=== PATIENT | female | born 1995 | race Caucasian/White ===

== ENCOUNTER 2018-02-25 19:50 | Observation (INO) ==
[2018-02-25 20:09] VITALS: BP 139/94
[2018-02-25 20:48] LABS: Basophils % 0.2 %; Eosinophils # 0.1 K/mcL (0.0-0.6); Eosinophils % 1.2 %; Hematocrit 32.9 % (35.3-44.9); Immature Granulocytes % 0.7 % (0-4); Lymphocytes # 2.1 K/mcL (0.6-4.6); Mean Corpuscular HGB Conc 33.4 g/dL (31.6-35.5); Mean Corpuscular Hemoglobin 28.5 pg (28.0-33.3); Mean Corpuscular Volume 85.2 fL (83.0-100.0); Mean Platelet Volume 10.4 fL (9.4-12.4); Monocytes # 0.5 K/mcL (0.0-1.3); Monocytes % 5.7 %; Neutrophils # 6.7 K/mcL (1.6-8.9); Platelet Count 246 K/mcL (140-400); Red Blood Count 3.86 M/mcL (3.82-4.97); Red Cell Distribution Width 12.3 % (11.5-14.5); Segmented Neutrophils % 70.2 %
[2018-02-25 21:09] LABS: Alanine Aminotransferase 7 Units/L (7-52); Aspartate Amino Transferase 10 Units/L (13-39); BUN/Creatinine Ratio 8 (6-26); Blood Urea Nitrogen 4 mg/dL (6-20); Lactate Dehydrogenase 118 Units/L (140-271); Uric Acid 4.1 mg/dL (2.3-7.6); eGFR For African Americans > 60 (> 60); eGFR For Non-African Americans > 60 (> 60)
[2018-02-25 21:25] LABS: Bilirubin,Urine Negative (Negative); Blood,Urine Negative (Negative); Clarity,Urine Clear (Clear); Color,Urine Yellow (Yellow); Glucose,Urine (UA) Normal (Normal); Ketones,Urine Negative (Negative); Leukocyte Esterase,Urine Trace (Negative); Nitrite,Urine Negative (Negative); PH,Urine 6.5 pH Units (5.0-8.0); Protein,Urine Negative (Neg-Trace); Specific Gravity,Urine 1.008 (1.010-1.025); Urobilinogen,Urine Normal (Normal)
[2018-02-25 21:34] LABS: Amphetamine Screen,Urine Negative ng/mL (Cutoff=1000); Barbiturate Screen,Urine Negative ng/mL (Cutoff=200); Benzodiazepines Screen,Urine Negative ng/mL (Cutoff=200); Cannabinoid Screen,Urine Positive ng/mL (Cutoff = 50); Cocaine Screen,Urine Negative ng/mL (Cutoff= 300); Opiate Screen,Urine Negative ng/mL (Cutoff=300); Phencyclidine Screen,Urine Negative ng/mL (Cutoff=25)
[2018-02-25 21:45] LABS: Creatinine,Urine 27 mg/dL
[2018-02-25 21:46] LABS: Renal Epithelial Cells,Urine Few per hpf (None-Few); Squamous Epithelial Cell,Urine Few per lpf (None-Few)
[2018-02-25 21:47] LABS: Bacteria,Urine Moderate per hpf (None-Few); RBC,Urine 0-3 per hpf (0-3); WBC,Urine 0-3 per hpf (0-3)
--- NOTE | 2018-02-25 21:53 | Discharge Summary ---
Date of Encounter: 02/25/18 Time of Encounter: 21:51 - Discharge Diagnosis (1) 35 weeks gestation of Priority: Primary Status: Acute Comments: admitted for PIH evaluation Normal PIH labs and BPs No proteinuria (2) NST (non-stress test) reactive on surveillance Priority: Secondary Status: Acute Comments: baseline 135 bpm moderate variability +15x15 accels no decels noted. No contractions. Cat 1 tracing - Discharge Medications Home Medications: Multivitamin [Flintstones] 1 tab PO DAILY 02/25/18 [History] Omeprazole [PriLOSEC] 1 tab PO DAILY 02/25/18 [History] Allergies/Adverse Reactions: 3 Allergy/AdvReac Type Severity Reaction Status Date / Time No Known Allergies Allergy Verified 02/25/18 20:03 Data Procedures and tests throughout hospitalization: Laboratory Tests 02/25/18 02/25/18 02/25/18 20:22 20:22 21:09 WBC 9.5 RBC 3.86 Hgb 11.0 L Hct 32.9 L MCV 85.2 MCH 28.5 MCHC 33.4 RDW 12.3 Plt Count 246 MPV 10.4 Immature Gran % 0.7 Seg Neutrophils % 70.2 Lymphocytes % 22.0 Monocytes % 5.7 Eosinophils % 1.2 Basophils % 0.2 Neutrophils # 6.7 Lymphocytes # 2.1 Monocytes # 0.5 Eosinophils # 0.1 Basophils # 0.0 BUN 4 L Creatinine 0.49 L Est GFR ( Amer) > 60 Est GFR (Non-Af Amer) > 60 BUN/Creatinine Ratio 8 Uric Acid 4.1 AST 10 L ALT 7 Lactate Dehydrogenase 118 L Urine Color Yellow Urine Clarity Clear Urine pH 6.5 Ur Specific [place] 1.008 L Urine Protein Negative Urine Glucose (UA) Normal Urine Ketones Negative Urine Blood Negative Urine Nitrite Negative Urine Bilirubin Negative Urine Urobilinogen Normal Ur Leukocyte Esterase Trace H Urine Microscopic RBC 0-3 Urine Microscopic WBC 0-3 Ur Squamous Epith Cells Few Ur Renal Epithelial Cell Few Urine Bacteria Moderate H Ur Culture Indicated? YES A Urine Creatinine Protein/Creatinin Ratio Urine Total Protein Urine Opiates Screen Ur Barbiturates Screen Ur Phencyclidine Scrn Ur Amphetamines Screen U Benzodiazepines Scrn Urine Cocaine Screen U Marijuana (THC) Screen 02/25/18 02/25/18 21:09 21:09 WBC RBC Hgb Hct MCV MCH MCHC RDW Plt Count MPV Immature Gran % Seg Neutrophils % Lymphocytes % Monocytes % Eosinophils % Basophils % Neutrophils # Lymphocytes # Monocytes # Eosinophils # Basophils # BUN Creatinine Est GFR ( Amer) Est GFR (Non-Af Amer) BUN/Creatinine Ratio Uric Acid AST ALT Lactate Dehydrogenase Urine Color Urine Clarity Urine pH Ur Specific [place] Urine Protein Urine Glucose (UA) Urine Ketones Urine Blood Urine Nitrite Urine Bilirubin Urine Urobilinogen Ur Leukocyte Esterase Urine Microscopic RBC Urine Microscopic WBC Ur Squamous Epith Cells Ur Renal Epithelial Cell Urine Bacteria Ur Culture Indicated? Urine Creatinine 27 Protein/Creatinin Ratio TNP Urine Total Protein < 4 Urine Opiates Screen Negative Ur Barbiturates Screen Negative Ur Phencyclidine Scrn Negative Ur Amphetamines Screen Negative U Benzodiazepines Scrn Negative Urine Cocaine Screen Negative U Marijuana (THC) Screen Positive H Labs on day of discharge: Labs from last 24 hours 02/25/18 02/25/18 02/25/18 21:09 21:09 21:09 WBC RBC Hgb Hct MCV MCH MCHC RDW Plt Count MPV Immature Gran % Seg Neutrophils % Lymphocytes % Monocytes % Eosinophils % Basophils % Neutrophils # Lymphocytes # Monocytes # Eosinophils # Basophils # BUN Creatinine Est GFR ( Amer) Est GFR (Non-Af Amer) BUN/Creatinine Ratio Uric Acid AST ALT Lactate Dehydrogenase Urine Color Yellow Urine Clarity Clear Urine pH 6.5 Ur Specific [place] 1.008 L Urine Protein Negative Urine Glucose (UA) Normal Urine Ketones Negative Urine Blood Negative Urine Nitrite Negative Urine Bilirubin Negative Urine Urobilinogen Normal Ur Leukocyte Esterase Trace H Urine Microscopic RBC 0-3 Urine Microscopic WBC 0-3 Ur Squamous Epith Cells Few Ur Renal Epithelial Cell Few Urine Bacteria Moderate H Ur Culture Indicated? YES A Urine Creatinine 27 Protein/Creatinin Ratio TNP Urine Total Protein < 4 Urine Opiates Screen Negative Ur Barbiturates Screen Negative Ur Phencyclidine Scrn Negative Ur Amphetamines Screen Negative U Benzodiazepines Scrn Negative Urine Cocaine Screen Negative U Marijuana (THC) Screen Positive H 02/25/18 02/25/18 20:22 20:22 WBC 9.5 RBC 3.86 Hgb 11.0 L Hct 32.9 L MCV 85.2 MCH 28.5 MCHC 33.4 RDW 12.3 Plt Count 246 MPV 10.4 Immature Gran % 0.7 Seg Neutrophils % 70.2 Lymphocytes % 22.0 Monocytes % 5.7 Eosinophils % 1.2 Basophils % 0.2 Neutrophils # 6.7 Lymphocytes # 2.1 Monocytes # 0.5 Eosinophils # 0.1 Basophils # 0.0 BUN 4 L Creatinine 0.49 L Est GFR ( Amer) > 60 Est GFR (Non-Af Amer) > 60 BUN/Creatinine Ratio 8 Uric Acid 4.1 AST 10 L ALT 7 Lactate Dehydrogenase 118 L Urine Color Urine Clarity Urine pH Ur Specific [place] Urine Protein Urine Glucose (UA) Urine Ketones Urine Blood Urine Nitrite Urine Bilirubin Urine Urobilinogen Ur Leukocyte Esterase Urine Microscopic RBC Urine Microscopic WBC Ur Squamous Epith Cells Ur Renal Epithelial Cell Urine Bacteria Ur Culture Indicated? Urine Creatinine Protein/Creatinin Ratio Urine Total Protein Urine Opiates Screen Ur Barbiturates Screen Ur Phencyclidine Scrn Ur Amphetamines Screen U Benzodiazepines Scrn Urine Cocaine Screen U Marijuana (THC) Screen Date of admission: 02/25/18 19:50 Discharging clinician: Virginia Luevano Anticipated date of discharge: 02/25/18 - Patient Status Disposition: Home, Self-Care Condition: Good Functional capacity at discharge: independent ambulation - Discharge Instructions Follow Up With: Catalino Segovia DO [Partnered Physician] - - Diet and Activity Activity: increase activity as tolerated Diet: regular diet 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 Patient reports BP was 144/92 at [facility]. Patient denies any headache currently, visual disturbances or epigastric pain. Patient reports +FM , denies contraction, LOF or VB. Time Attestation: Total time spent providing and/or coordinating discharge services: Time Spent: Less than 30 minutes Exam - Constitutional Vitals: Pulse Resp BP 115 16 139/94 02/25/18 20:01 02/25/18 20:01 02/25/18 20:01 General appearance IM: A&O X 3, pleasant, answers questions appropriately - Respiratory Respiratory exam: Present: CTAB - Cardiovascular Cardiovascular exam IM: Present: RRR, +S1, +S2 - Extremities Exam Extremities exam IM: Present: full ROM, normal capillary refill, pedal edema (1+ ) - Neurological Exam Neurological exam: alert, oriented X3, reflexes normal - VTE Reasons for not Prescribing Prophylaxis: Treatment not Indicated - Low risk for VTE
== END 2018-02-25 22:03 | disposition home or self-care (01) ==
LOC: 1NENULAB
PROVIDERS: ADMIT Advanced Practice Midwife; ATTEND Advanced Practice Midwife

== ENCOUNTER 2018-03-07 14:22 | Observation (INO) ==
[2018-03-07 15:12] LABS: Basophils % 0.3 %; Eosinophils # 0.1 K/mcL (0.0-0.6); Eosinophils % 0.7 %; Hematocrit 34.8 % (35.3-44.9); Hemoglobin 11.3 g/dL (11.5-15.4); Immature Granulocytes % 0.6 % (0-4); Mean Corpuscular HGB Conc 32.5 g/dL (31.6-35.5); Mean Corpuscular Volume 83.1 fL (83.0-100.0); Mean Platelet Volume 10.5 fL (9.4-12.4); Monocytes # 0.5 K/mcL (0.0-1.3); Monocytes % 5.1 %; Neutrophils # 7.8 K/mcL (1.6-8.9); Platelet Count 254 K/mcL (140-400); Red Blood Count 4.19 M/mcL (3.82-4.97); Red Cell Distribution Width 12.7 % (11.5-14.5); Segmented Neutrophils % 74.3 %
[2018-03-07 15:33] LABS: Alanine Aminotransferase 8 Units/L (7-52); Aspartate Amino Transferase 13 Units/L (13-39); BUN/Creatinine Ratio 12 (6-26); Blood Urea Nitrogen 6 mg/dL (6-20); Lactate Dehydrogenase 158 Units/L (140-271); Uric Acid 4.5 mg/dL (2.3-7.6); eGFR For African Americans > 60 (> 60); eGFR For Non-African Americans > 60 (> 60)
[2018-03-07 15:46] LABS: Protein/Creatinine Ratio,Urine 0.73 mg/mg (0.00-0.20)
[2018-03-07 15:47] LABS: Amphetamine Screen,Urine Negative ng/mL (Cutoff=1000); Barbiturate Screen,Urine Negative ng/mL (Cutoff=200); Benzodiazepines Screen,Urine Negative ng/mL (Cutoff=200); Cannabinoid Screen,Urine Positive ng/mL (Cutoff = 50); Cocaine Screen,Urine Negative ng/mL (Cutoff= 300); Opiate Screen,Urine Negative ng/mL (Cutoff=300); Phencyclidine Screen,Urine Negative ng/mL (Cutoff=25)
--- NOTE | 2018-03-07 16:33 | OB/GYN Progress Note ---
Date of Encounter: 03/07/18 Time of Encounter: 16:31 - Assessment and Plan (1) 36 weeks gestation of Current Visit: Yes Status: Acute Return to L&D on Monday03/12/18 for induction of labor secondary to preeclampsia Preeclampsia precautions given labor precautions given Discharge home (2) NST (non-stress test) reactive on surveillance Current Visit: Yes Status: Acute Subjective - Subjective Principal diagnosis: Pre-eclampsia Interval history: Ms. Villalobos presents to L&D from the office for PIH evaluation. Per Dr. Segovia, she has a grade 3 placenta along with midrange blood pressures and proteinuria. She endorses good movement and denies contractions, leakage of fluid, vaginal bleeding. Antepartum ROS: movement normal, no loss of fluid, no vaginal bleeding, no contractions Objective - Vital Signs Vital Signs: Intake and Output 03/07/18 03/07/18 03/07/18 07:59 15:59 23:59 Other: Weight 110.5 kg Patient Weight 03/07/18 23:59 Weight 110.5 kg - Exam FHR: category 1 FHR comments: Baseline 135 Moderate variability Accelerations present 15 x 15 Decelerations absent FHR category I No toco activity Auscultation: bilateral: normal Abdomen: Present: normal appearance, soft, gravid Uterus: Present: normal, firm Cervical dilation: 0 Cervix effacement: 50 station: -2 - Labs Labs: Abnormal lab results Hgb 11.3 g/dL (11.5-15.4) L 03/07/18 14:40 Hct 34.8 % (35.3-44.9) L 03/07/18 14:40 MCH 27.0 pg (28.0-33.3) L 03/07/18 14:40 Creatinine 0.49 mg/dL (0.60-1.20) L 03/07/18 14:40 Protein/Creatinin Ratio 0.73 mg/mg (0.00-0.20) H 03/07/18 15:16 Urine Total Protein 160 mg/dL (1-14) H 03/07/18 15:16 U Marijuana (THC) Screen Positive ng/mL (Cutoff = 50) H 03/07/18 15:16
== END 2018-03-07 16:30 | disposition home or self-care (01) ==
LOC: 1NENULAB
PROVIDERS: ADMIT Obstetrics & Gynecology; ATTEND Obstetrics & Gynecology

== ENCOUNTER 2018-03-12 00:21 | Inpatient (IN) ==
[2018-03-12] MEDS ORDERED: Ondansetron 4 MG/2 ML VIAL IVP PRN ×2 (00:23→08:23)
[2018-03-12] MEDS ORDERED: *HR* Nalbuphine 10 MG/ML AMPUL IVP PRN (00:23)
[2018-03-12] MEDS ORDERED: Metoclopramide 10 MG/2 ML VIAL IVP PRN (00:23)
[2018-03-12] MEDS ORDERED: Famotidine 20 MG/2 ML VIAL IVP PRN (00:23)
[2018-03-12] MEDS ORDERED: Naloxone 0.4 MG/ML INJ IVP PRN ×2 (00:23→08:23)
[2018-03-12] MEDS ORDERED: Ringers Solution, Lactated 1,000 ML IVC SCH (00:30)
--- NOTE | 2018-03-12 00:35 | OB/GYN History & Physical ---
Date of Encounter: 03/12/18 Time of Encounter: 00:29 Assessment and Plan (1) 37 weeks gestation of Current visit: Yes Status: Acute (2) Pre-eclampsia affecting childbirth Current visit: Yes Status: Acute Admit to labor and delivery Induction of labor with cytotec Cervical nieves placed PIH labs Nubain and epidural as desired Anticipate History of Present Illness HPI: Ms. Villalobos is a 22 year old female 37+0 weeks gestation. Presents to triage with complaints of headache and visual changes that have been occuring all day, but became worse this evening. Reports good movement, denies contractions , vaginal bleeding or leaking of fluid. care with Dr. Segovia. Pre-eclampsia diagnosed last week with IOL scheduled for today. complicated by THC use, posterior placenta with accessory lobe noted to anteriorly without vasa previa noted. Labs: A+, Rubella immune, varicella non immune, GBS negative, all other serologies negative. Past Med Surg Social Fam HX - Past Medical History Medical history: no medical history Psychiatric history: anxiety - Past Surgical History Surgical History: non-contributory - Social History Smoking Status: Never smoker Smokeless Tobacco Status: No Alcohol use: none Drug use: marijuana Obstetrical History - Pregnancies : 2 Para: 0 Term: 0 : 0 Ab's: 1 Livin Medications and Allergies Multivitamin [Flintstones] 1 tab PO DAILY 02/25/18 [History] Omeprazole [PriLOSEC] 1 tab PO DAILY 02/25/18 [History] 3 Allergy/AdvReac Type Severity Reaction Status Date / Time No Known Allergies Allergy Verified 02/25/18 20:03 Exam - Constitutional Constitutional: well developed, well nourished, no acute distress - Neck Neck exam: full ROM - Lungs Respiratory exam: CTAB - Cardiovascular Cardiovascular exam: RRR - Abdomen Abdomen: Present: gravid, non tender - Extremities Extremities exam: normal capillary refill, pedal edema Deep Tendon Reflex Grade: 3+ Normal But Brisk - Vagina Vagina: Present: normal moisture - Cervix Dilation: 1 Effacement: 70 Station: -2 Results All other labs normal. - VTE Reasons for not Prescribing Prophylaxis: Treatment not Indicated - Low risk for VTE
[2018-03-12] MEDS ORDERED: miSOPROStol 25 MCG TABLET PO PRN (01:01)
[2018-03-12 01:04] LABS: Basophils % 0.3 %; Eosinophils # 0.1 K/mcL (0.0-0.6); Eosinophils % 0.8 %; Hematocrit 34.5 % (35.3-44.9); Hemoglobin 11.4 g/dL (11.5-15.4); Immature Granulocytes % 0.5 % (0-4); Lymphocytes # 2.8 K/mcL (0.6-4.6); Lymphocytes % 22.8 %; Mean Corpuscular Hemoglobin 27.5 pg (28.0-33.3); Mean Corpuscular Volume 83.1 fL (83.0-100.0); Mean Platelet Volume 10.7 fL (9.4-12.4); Monocytes # 0.7 K/mcL (0.0-1.3); Monocytes % 5.6 %; Neutrophils # 8.7 K/mcL (1.6-8.9); Platelet Count 273 K/mcL (140-400); Red Blood Count 4.15 M/mcL (3.82-4.97); Red Cell Distribution Width 12.7 % (11.5-14.5)
[2018-03-12 01:05] LABS: Amphetamine Screen,Urine Negative ng/mL (Cutoff=1000); Barbiturate Screen,Urine Negative ng/mL (Cutoff=200); Benzodiazepines Screen,Urine Negative ng/mL (Cutoff=200); Cannabinoid Screen,Urine Positive ng/mL (Cutoff = 50); Cocaine Screen,Urine Negative ng/mL (Cutoff= 300); Creatinine,Urine 144 mg/dL; Opiate Screen,Urine Negative ng/mL (Cutoff=300); Phencyclidine Screen,Urine Negative ng/mL (Cutoff=25); Protein/Creatinine Ratio,Urine 0.09 mg/mg (0.00-0.20)
[2018-03-12 01:15] LABS: Alanine Aminotransferase 7 Units/L (7-52); Aspartate Amino Transferase 12 Units/L (13-39); BUN/Creatinine Ratio 12 (6-26); Blood Urea Nitrogen 7 mg/dL (6-20); Lactate Dehydrogenase 136 Units/L (140-271); Uric Acid 4.9 mg/dL (2.3-7.6); eGFR For African Americans > 60 (> 60); eGFR For Non-African Americans > 60 (> 60)
[2018-03-12] MEDS ORDERED: Mag Hydrox/Al Hydrox/Simeth 30 ML UDC PO PRN (07:40)
--- NOTE | 2018-03-12 07:49 | OB Labor Progress Note ---
Date of Encounter: 03/12/18 Time of Encounter: 07:45 Labor Progress Note - Subjective Subjective: patient states she is getting a little uncomforable but tolerating the contractions, Devi catheter is out at this time. - Cervix Cervix: 4-5/80/-2 AROM clear fluid moderate amount - Heart Tones Heart Tones: heart tones 140s reactive - [place]: Contractions every 2 minutes - Plan Plan: Continue current care if she does not make significant cervical change on her own we will augment with Pitocin we will give patient an epidural when she is ready and plan is to anticipate vaginal delivery
--- NOTE | 2018-03-12 08:20 | Anesthesia Evaluation PreOp ---
Date of Encounter: 03/12/18 Time of Encounter: 07:59 - Past History Planned Operation: GIBRAN Cardiac History: Other (PIH, slightly elevated BP) Pulmonary History: Denies Any Significant HX [employer]ING History: Denies Any Significant HX Other Medical History: Denies Any Significant HX, GERD, Other (anxiety) Anesthesia History: No Prior Anesthetic Complications, Past Anesthesia (T&A at age 10.) : Yes Alcohol Use: none Drug use: marijuana Medications and Allergies Multivitamin [Flintstones] 1 tab PO DAILY 02/25/18 [History] Omeprazole [PriLOSEC] 1 tab PO DAILY 02/25/18 [History] 3 Allergy/AdvReac Type Severity Reaction Status Date / Time No Known Allergies Allergy Verified 02/25/18 20:03 - Meds/Allergy Pre-op Review Medications Reviewed: Yes Allergies Reviewed: Yes Beta Blockers on Current Med List: No Anesthesia Results - Labs 03/12/18 00:35 03/12/18 00:35 Anesthesia Exam BP 148/97 P 103 R 16 T 97.3 Height: 5'7" Weight: 113.5kg NPO (# of Hours): 2 Pain Scale: 4 Pain Scale Used: Numeric (1 - 10) - HEENT Pupil (Motor): Pupils equal Mallampati: II Teeth: Normal Oral Opening: Greater than 3 - [employer] LOC: Oriented [employer] Motor: Normal RUE, Normal LUE, Normal RLE, Normal LLE, Normal Face [employer] Sensory: Normal: RUE, LUE, RLE, LLE, Face - Cardiac Rhythm: Regular Murmur: None JVD: No Carotid Bruit: No - Pulmonary Breath Sounds: bilateral Clear Respiratory Effort: Symmetrical Anesthesia Assess/Plan ASA Score: 2 Modified Greenway Scale for Level of Consciousness: Cooperative, oriented, and tranquil Anesthetic Plan: Regional Autologous Blood: No Monitoring Plan: Standard Monitors Recovery Plan: Other
[2018-03-12] MEDS ORDERED: Bupivacaine-MPF 0.25% 10 ML VIAL EP ONE (08:23)
[2018-03-12] MEDS ORDERED: *HR* Ropivacaine/PF 0.2% 20 ML VIAL EP ONE (08:23)
[2018-03-12] MEDS ORDERED: EPHEDrine 50 MG/ML VIAL IVP PRN (08:23)
[2018-03-12] MEDS ORDERED: *HR* FentaNYL (PF) 100 MCG/2 ML VIAL EP ONE (08:23)
[2018-03-12] MEDS ORDERED: Epidural Premix (fent/bupiv) 110 ML EP SCH (08:30)
[2018-03-12] MEDS ORDERED: *HR* Ropivacaine/PF 0.2% 20 ML VIAL ONE (10:48)
[2018-03-12] MEDS ORDERED: Lidocaine -MPF 1% 5 ML AMPUL ONE (10:48)
[2018-03-12] MEDS ORDERED: Bupivacaine-MPF 0.25% 10 ML VIAL ONE (10:48)
[2018-03-12] MEDS ORDERED: *HR* FentaNYL (PF) 100 MCG/2 ML VIAL ONE (10:48)
--- NOTE | 2018-03-12 12:02 | Anesthesia Procedures ---
Date of Encounter: 03/12/18 Time of Encounter: 11:03 Procedures: Anesthesia - Epidural/Spinal Patient ID/Chart reviewed: Yes Patient examined: Yes OB Eval: Gestational age: 37 weeks OB Eval: : 2 OB Eval: Hx Para: 0 OB Eval: Dilated at (cm): 6 OB Eval: Contractions: Non-stressed pattern Consent Obtained: Yes Supplemental Oxygen: None/Room Air Site Prep: Aseptic Technique, Sterile prep and drape, Povidone-Iodine 1% Patient position: upright Local Anesthetic: Lidocaine 1% Amount of Local Anesthetic used: 3 Touhy Needle Gauge: 18 Touhy Needle Depth (cm): 6 Catheter Depth at Skin (cm): 15 Test Dose (1.5% Lido + Epi): Volume given (mls): 3 Test Dose Result: Negative Loading Dose: 0.25% Marcaine (mls): 10 Loading Dose: Fentanyl (mcg): 100 Loading Dose Administered: Thru Catheter Infusion Med: 0.125% Bupivacaine w/ 2 mcg/ml Fentanyl Infusion Rate (mls/hr): [address]: Tegaderm, Tape Interspace Used: L4-L5 Loss of Resistance (GLENNA): Yes Blood: No CSF: No Paresthesia: No Procedure: GIBRAN placed 1st pass in upright position without any immediate noted complications. VSS and FHT stable throughout. Vitals + FHT's: 1103 BP 138/83 P 110 R 18 1127 BP 146/71 P 104 R 16 FHT 140s
--- NOTE | 2018-03-12 12:18 | OB Labor Progress Note ---
Date of Encounter: 03/12/18 Time of Encounter: 12:15 Labor Progress Note - Subjective Subjective: doing well not feeling contractions since section - Cervix Cervix: 6/80/-2 - Heart Tones Heart Tones: FHT's 140's reactive - [place] Frost: IUPC placed contractions every 2-3 min - Plan Plan: continue current care anticipate
--- NOTE | 2018-03-12 16:27 | OB Labor Progress Note ---
Date of Encounter: 03/12/18 Time of Encounter: 16:20 Labor Progress Note - Subjective Subjective: Patient still very comfortable with epidural - Cervix Cervix: 6/80/-2 - Heart Tones Heart Tones: heart tones 140s reactive - [place] L[place]: Contractions irregular every 3-5 minutes - Plan Plan: We will continue current care will augment with Pitocin as soon as possible
[2018-03-12] MEDS ORDERED: Oxytocin 20 units/ LR 1000 mL 20 UNIT/1,000 ML BAG IVC SCH (18:45)
[2018-03-12] MEDS ORDERED: Penicillin G Potassium 5,000,000 UNIT in 0.9 % Sodium Chloride Mini Bag 100 ML IVPB ONE (19:38)
[2018-03-13] MEDS ORDERED: Penicillin G Potassium 2,500,000 UNIT in 0.9 % Sodium Chloride 100 ML IVPB SCH
--- NOTE | 2018-03-13 01:20 | OB/GYN Procedure Note ---
Delivery - Delivery Date: 03/13/18 Provider: Catalino Segovia Intrapartum events: prolonged labor- > = 20hr Delivery induction: misoprostol, cervidil Delivery augmentation: rupture of membranes, pitocin Delivery monitor: external FHT, external uterine, internal uterine Anesthesia: local, epidural Quantitated Blood Loss: 100 - (s) A Infant Delivery Date: 03/13/18 Delivery Time: 00:41 Presentation: vertex Position: JOSETTE Route of delivery: Gender: Male Viability: Viable Pounds: 6 Ounces: 6 Weight Gram: 2.89 kg at 1 minute: 8 at 5 mins: 9 Shoulder Dystocia: not encountered Specimens collected: cord blood Placenta: spontaneous Cord: 3 umbilical vessels - Repair Episiotomy: none Laceration Description: Perineal - 1st Degree - Complications Delivery complications: none Delivery comments: Patient is a 22-year-old 2 para 0010 at 37 and one sevenths weeks who is brought in for induction of labor secondary to preeclampsia. Patient's had been seen last week in the office she was noted to have a grade 3 placenta and elevated blood pressures she was since late delivery labs are normal except for protein creatinine ratio which was elevated it was decided when she was 37 weeks patient be sent to labor and delivery and be induced patient was scheduled for this morning however patient came in approximately midnight with complaint of severe headaches blurred vision and increasing edema. Patient was markedly edematous labs are still normal but she still had blood pressures that were elevated erythrocyte this time to go ahead and just keep her Devi catheter and Cytotec was placed blood pressures did remain stable she did not require magnesium sulfate at this time patient catheter fell out approximately 4 hours later she was artificially ruptured clear fluid noted patient progressed to approximately 6 cm then arrested at this for approximately 6 hours Pitocin was eventually able to be started. Patient progressed appropriately at this point became complete we pushed for less than 1 hour delivering a viable male in left occiput anterior presentation at 0041. There was no nuchal cord, no meconium, infant was not suctioned on the abdomen. Apgars were 8 at 1 minute, 9 at 5 minutes, weight was 6 lbs. 6 oz. 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 Patient had a first-degree perineal laceration repaired with 3-0 Monocryl in usual fashion. Cervix vagina was visualized intact. Patient will be observed 2 hours before being taken floor. Antibiotics have been started at the 12 hour gonzalo from rupture, and all needles laps and sponge counts were correct 3. - Disposition Mom disposition: stable in LDR [place] disposition: stable in LDR
[2018-03-13] MEDS ORDERED: Oxytocin 20 units/ LR 1000 mL 20 UNIT/1,000 ML BAG IVC ONE (03:00)
[2018-03-13] MEDS ORDERED: Oxytocin 20 units/ LR 1000 mL 20 UNIT/1,000 ML BAG IVC SCH (03:00)
[2018-03-13] MEDS ORDERED: Acetaminophen 325 MG TABLET PO PRN (03:00)
[2018-03-13] MEDS ORDERED: Measles/Mumps/Rubella Vacc 0.5 ML VIAL SQ PRN (03:00)
[2018-03-13 05:20] LABS: Basophils % 0.1 %; Hematocrit 30.8 % (35.3-44.9); Hemoglobin 10.3 g/dL (11.5-15.4); Immature Granulocytes % 0.6 % (0-4); Lymphocytes # 1.4 K/mcL (0.6-4.6); Lymphocytes % 7.1 %; Mean Corpuscular HGB Conc 33.4 g/dL (31.6-35.5); Mean Corpuscular Hemoglobin 27.8 pg (28.0-33.3); Mean Platelet Volume 10.6 fL (9.4-12.4); Monocytes # 1.1 K/mcL (0.0-1.3); Monocytes % 5.6 %; Neutrophils # 17.4 K/mcL (1.6-8.9); Platelet Count 240 K/mcL (140-400); Red Blood Count 3.71 M/mcL (3.82-4.97); Red Cell Distribution Width 12.8 % (11.5-14.5); Segmented Neutrophils % 86.6 %
[2018-03-13 06:53] LABS: Alanine Aminotransferase 8 Units/L (7-52); Aspartate Amino Transferase 14 Units/L (13-39); BUN/Creatinine Ratio 10 (6-26); Blood Urea Nitrogen 5 mg/dL (6-20); Lactate Dehydrogenase 163 Units/L (140-271); Uric Acid 4.9 mg/dL (2.3-7.6); eGFR For African Americans > 60 (> 60); eGFR For Non-African Americans > 60 (> 60)
[2018-03-13] MEDS: Prenatal Vit/FA 1 EACH TABLET PO SCH (08:52)
[2018-03-13] MEDS: Ibuprofen 600 MG TABLET PO PRN (08:52)
[2018-03-13] MEDS: Multivit/Ca/Min/Fe/FA 1 TAB TABLET PO SCH (08:52)
[2018-03-14] MEDS: Ibuprofen 600 MG TABLET PO PRN (01:55)
[2018-03-14 09:04] VITALS: BP 132/77
--- NOTE | 2018-03-14 09:04 | Discharge Summary ---
Date of Encounter: 03/14/18 Time of Encounter: 09:01 - Discharge Diagnosis (1) Vaginal delivery Priority: Primary Status: Acute Comments: Pt meeting milestones. She desires discharge home today. (2) Pre-eclampsia affecting childbirth Priority: Secondary Status: Acute Comments: BP normal . Pt denies SANON, vision changes, or RUQ pain. (3) Mother currently breast-feeding Priority: Secondary Status: Acute Comments: Pt has breastpump at home. consult prior to discharge today. - Discharge Medications Prescriptions: Ibuprofen [Motrin] 600 mg PO Q6HR PRN #30 tablet PRN Reason: Cramping Docusate [Colace] 100 mg PO BID #30 capsule Home Medications: Multivitamin [Flintstones] 1 tab PO DAILY 02/25/18 [History] Omeprazole [PriLOSEC] 1 tab PO DAILY 02/25/18 [History] Docusate [Colace] 100 mg PO BID #30 capsule 03/14/18 [Rx] Ibuprofen [Motrin] 600 mg PO Q6HR PRN #30 tablet 03/14/18 [Rx] Allergies/Adverse Reactions: 3 Allergy/AdvReac Type Severity Reaction Status Date / Time No Known Allergies Allergy Verified 02/25/18 20:03 Data Procedures and tests throughout hospitalization: Laboratory Tests 03/12/18 03/12/18 03/12/18 00:35 00:35 00:35 WBC 12.4 H RBC 4.15 Hgb 11.4 L Hct 34.5 L MCV 83.1 MCH 27.5 L MCHC 33.0 RDW 12.7 Plt Count 273 MPV 10.7 Immature Gran % 0.5 Seg Neutrophils % 70.0 Lymphocytes % 22.8 Monocytes % 5.6 Eosinophils % 0.8 Basophils % 0.3 Neutrophils # 8.7 Lymphocytes # 2.8 Monocytes # 0.7 Eosinophils # 0.1 Basophils # 0.0 BUN 7 Creatinine 0.60 Est GFR ( Amer) > 60 Est GFR (Non-Af Amer) > 60 BUN/Creatinine Ratio 12 Uric Acid 4.9 AST 12 L ALT 7 Lactate Dehydrogenase 136 L Urine Creatinine 144 Protein/Creatinin Ratio 0.09 Urine Total Protein 13 Urine Opiates Screen Negative Ur Barbiturates Screen Negative Ur Phencyclidine Scrn Negative Ur Amphetamines Screen Negative U Benzodiazepines Scrn Negative Urine Cocaine Screen Negative U Marijuana (THC) Screen Positive H 06/19/18 06/19/18 04:30 06:20 WBC 20.1 H D RBC 3.71 L Hgb 10.3 L Hct 30.8 L MCV 83.0 MCH 27.8 L MCHC 33.4 RDW 12.8 Plt Count 240 MPV 10.6 Immature Gran % 0.6 Seg Neutrophils % 86.6 Lymphocytes % 7.1 Monocytes % 5.6 Eosinophils % 0.0 Basophils % 0.1 Neutrophils # 17.4 H Lymphocytes # 1.4 Monocytes # 1.1 Eosinophils # 0.0 Basophils # 0.0 BUN 5 L Creatinine 0.49 L Est GFR ( Amer) > 60 Est GFR (Non-Af Amer) > 60 BUN/Creatinine Ratio 10 Uric Acid 4.9 AST 14 ALT 8 Lactate Dehydrogenase 163 Urine Creatinine Protein/Creatinin Ratio Urine Total Protein Urine Opiates Screen Ur Barbiturates Screen Ur Phencyclidine Scrn Ur Amphetamines Screen U Benzodiazepines Scrn Urine Cocaine Screen U Marijuana (THC) Screen Date of admission: 03/12/18 00:21 Primary care physician: Rafael Jacinto MD Consults: 03/13/18 03:00 Consult to Tank Riveter [CONS] Routine Comment: Vaginal delivery, consult needed Discharging clinician: Fifi Milan Anticipated date of discharge: 03/14/18 - Patient Status Disposition: Home, Self-Care Condition: Good Functional capacity at discharge: independent ambulation Overall status at discharge: patient is progressing back to baseline - Discharge Instructions Follow Up With: Rafael Jacinto MD [Primary Care Provider] - Catalino Segovia DO [Partnered Physician] - - Diet and Activity Activity: increase activity as tolerated Hospital Course Reason for admission: induction of labor Delivery: Episiotomy: none Laceration: 1st degree Other procedures: none complications: none Discharge diagnosis: IUP at term delivered [place] baby: male Hospital course: - Delivery Date: 03/13/18 Provider: Catalino Segovia Intrapartum events: prolonged labor- > = 20hr Delivery induction: misoprostol, cervidil Delivery augmentation: rupture of membranes, pitocin Delivery monitor: external FHT, external uterine, internal uterine Anesthesia: local, epidural Quantitated Blood Loss: 100 - Infant (s) Infant A Infant Delivery Date: 03/13/18 Infant Delivery Time: 00:41 Presentation: vertex Position: JOSETTE Route of delivery: Gender: Male Viability: Viable Pounds: 6 Ounces: 6 Weight Gram: 2.89 kg at 1 minute: 8 at 5 mins: 9 Shoulder Dystocia: not encountered Specimens collected: cord blood Placenta: spontaneous Cord: 3 umbilical vessels - Repair Episiotomy: none Laceration Description: Perineal - 1st Degree - Complications Delivery complications: none - Disposition Mom disposition: home PPD1 disposition: home with mother, Time Attestation: Total time spent providing and/or coordinating discharge services: Time Spent: Less than 30 minutes Exam - Constitutional Vitals: Temp Pulse Resp BP Pulse Ox 97.7 F 90 14 124/77 99 03/14/18 03:25 03/14/18 03:25 03/14/18 03:25 03/14/18 03:25 03/14/18 03:25 General appearance IM: A&O X 3 - Respiratory Respiratory exam: Present: CTAB - Cardiovascular Cardiovascular exam IM: Present: RRR - GI/Abdominal GI/Abdominal exam IM: soft - Uterine Tone: Firm Uterus Position: 1 Finger Below Umbilicus, Left of Midline - Extremities Exam Extremities exam IM: Present: normal inspection, pedal edema (2+ bilaterally, no erythema or warmth) - Neurological Exam Neurological exam: normal gait, oriented X3 - Psychiatric Additional comments: reports tired but otherwise good mood
[2018-03-14] MEDS: Prenatal Vit/FA 1 EACH TABLET PO SCH (09:09)
[2018-03-14] MEDS: Multivit/Ca/Min/Fe/FA 1 TAB TABLET PO SCH (09:09)
== END 2018-03-14 15:35 | disposition home or self-care (01) | DRG 775 ==
LOC: 1NENULAB 00:21 → 1NENUOBS 03-13 03:37
PROVIDERS: ADMIT Advanced Practice Midwife; ATTEND Advanced Practice Midwife